=== PATIENT | female | born 1970 | race African-American/Black ===

== ENCOUNTER 2018-03-24 08:39 | Emergency (ER) | payer BC ==
[~2018-03-24] VITALS: Ht 149.9 cm; Wt 96.6 kg
[~2018-03-24 08:39] MED LIST: AZITHROMYCIN 2250 MG PO; CLARITIN-D 24 H1 TA1 PO; CLEOCIN HCL300 MG PO; FLAGYL500 MG PO; HYDROCODON-ACE1 EAC7 PO; IBUPROFEN 600600 M1 PO; IBUPROFEN 800800 M1 PO; IBUPROFEN 800800 MG PO; MACROBID 100 M100 M1 PO; NOHOMEMEDICATIONS; NORCO 5-325 TA1 EACH PO; PROMETHAZINE-C120 ML PO; ZPAK PO
[2018-03-24 08:41] VITALS: BP 134/76
== END 2018-03-24 09:30 | disposition home or self-care (01) ==
LOC: ER 08:39
DX: L02.01 Cutaneous abscess of face (principal); Z90.49 Acquired absence of other specified parts of digestive tract